=== PATIENT | female | born 1990 | race Caucasian/White ===

== ENCOUNTER 2019-12-22 11:30 | Inpatient (IN) ==
[2019-12-23] MEDS ORDERED: DINOPROSTONE 10 MG INSERT PV ONE (09:36)
[2019-12-23] MEDS ORDERED: OXYTOCIN 30 UNITS/500 ML BAG IV PRN (09:36)
[2019-12-23 09:56] LABS: Hematocrit (blood only) 38.2 % (37-47); Mean Corpuscular Hemoglobin 30.7 pg (25-34); Mean Corpuscular Volume 90.1 fL (80-100); Mean Platelet Volume 10.8 fL (7.4-10.4); Platelet Count 197 K/uL (130-400); RDW Coefficient of Variation 12.8 % (11.5-14.5); RDW Standard Deviation 41.8 fL (36.4-46.3); Red Blood Count 4.24 M/uL (4.2-5.4); White Blood Count 10.01 K/uL (4.8-10.8)
--- NOTE | 2019-12-23 10:36 | Obstetrical Progress Note ---
Date of Service December 23, 2019 Assessment & Plan Admission and Anticipated Discharge Date Admission Date: December 23, 2019 Subjective Admit Note 29 F P0000 at 40.3 weeks admitted for induction of labor for post dates. GBS is positive. FHT Cat 1. Cervix finger tip/50/-3/posterior/intact/mod. Cervidil 10 mg placed vaginally to ripen cervix. Results & Data ([facility]) Vital Signs (Past 12 Hours) Vital Signs Temp Pulse Resp BP 12/23/19 10:00 18 12/23/19 09:30 12/23/19 09:00 12/23/19 08:30 18 12/23/19 08:15 12/23/19 07:57 36.9 C 12/23/19 07:50 67 123/77
[2019-12-23] MEDS ORDERED: BUTORPHANOL TARTRATE 1 MG/ML VIAL IV PRN (21:27)
--- NOTE | 2019-12-23 21:38 | Obstetrical Progress Note ---
Date of Service December 23, 2019 Assessment & Plan Admission and Anticipated Discharge Date Admission Date: December 23, 2019 Subjective Doing well ambulating tolerating diet Physical Exam Constitutional: WD/WN, vitals as above comfortable Genitourinary: OB Exam Abdomen: + irregular contractions Manual OB Exam: + cervical dilation 1 cm, + cervical effacement 60% and + station high OB Exam Monitor Tracing: + external FHT monitor used, + external uterine monitor used, + category I and + normal FHT variability Cervidil pulled ou Will start Cytotec 50 mcg orally every 4 hours titrated to contractions Results & Data ([facility]) Vital Signs (Past 12 Hours) Vital Signs Temp Pulse Resp BP 12/23/19 19:06 36.6 C 71 18 125/77 12/23/19 17:30 18 12/23/19 17:02 71 116/68 12/23/19 16:00 36.9 C 20 12/23/19 15:45 20 12/23/19 14:26 18 12/23/19 14:00 20 12/23/19 13:30 20 12/23/19 12:20 36.7 C 59 L 123/76 12/23/19 12:15 18 12/23/19 11:30 18 12/23/19 11:00 18 12/23/19 10:30 18 12/23/19 10:00 18
[2019-12-23] MEDS ORDERED: miSOPROStoL 50 MCG TAB ONE (22:47)
[2019-12-24] MEDS ORDERED: miSOPROStoL 50 MCG TAB PO SCH
[2019-12-24] MEDS: LACTATED RINGER'S 1,000 ML IV PRN ×3 (00:54→09:34)
[2019-12-24] MEDS ORDERED: BUPIVACAINE 0.25% 30 ML VIAL ONE (01:00)
[2019-12-24] MEDS ORDERED: ePHEDrine sulfate 50 MG/ML AMP ONE (01:00)
[2019-12-24] MEDS ORDERED: fentaNYL citrate 100 MCG/2 ML VIAL ONE (01:00)
[2019-12-24] MEDS ORDERED: fentaNYL 2MCG/ML ROPIV 1.25MG/ML 100 ML BAG EPI ONE (01:01)
[2019-12-24] MEDS ORDERED: DiphenhydrAMINE HCL 50 MG/ML VIAL IV PRN (03:07)
[2019-12-24] MEDS ORDERED: NALOXONE HCL 0.4 MG/1 ML VIAL/CARP IV PRN (03:07)
[2019-12-24] MEDS ORDERED: NALOXONE HCL 1 MG in SODIUM CHLORIDE 0.9% 1000ML 1,000 ML IV PRN (03:07)
[2019-12-24] MEDS ORDERED: fentaNYL 2MCG/ML ROPIV 1.25MG/ML 100 ML BAG EPI PRN (03:07)
[2019-12-24] MEDS ORDERED: NALBUPHINE HCL INJ 10 MG/ML AMP IV PRN (03:07)
[2019-12-24] MEDS ORDERED: ePHEDrine sulfate 50 MG/ML AMP IV PRN (03:07)
--- NOTE | 2019-12-24 03:11 | Anesthesiology Consultation ---
Date of Service December 24, 2019 Assessment & Plan Chart Review Chart Review: Acceptable Risk for Labor Epidural Consults Requested none History Height/Weight Height: 5 ft 4 in Weight: 70.307 kg Allergies Allergy/AdvReac Type Severity Reaction Status Date / Time amoxicillin Allergy Unknown hives Verified 12/21/19 11:56 cefprozil [From Cefzil] Allergy Hives Verified 12/23/19 07:55 Medications Home Medications Medication Instructions Recorded Confirmed Last Taken famotidine [Pepcid] 20 mg PO DAILY 12/23/19 12/23/19 Unknown vit-iron fum-folic ac 1 tab PO DAILY 12/23/19 12/23/19 12/23/19 [ Vitamin] Active Medications Generic Name Dose Route Start Last Admin Trade Name Freq PRN Reason Stop Dose Admin Butorphanol Tartrate 1 mg 12/23/19 21:27 12/24/19 01:12 Stadol IV 01/22/20 21:26 1 mg Q2R PRN Administration Pain Lactated Ringer's 1,000 mls @ 125 mls/hr 12/23/19 09:36 12/24/19 02:02 Lr IV 12/25/19 09:35 125 mls/hr .Q8H PRN Administration L&D Protocol Protocol Past Medical History Medical History Kidney infection Past Surgical History Surgical History H/O wisdom tooth extraction History of dental surgery Social History Smoking Status: Never smoker Hx Alcohol Use: No Hx Substance Use: No substance use type: does not use Physical Exam Vital Signs Last Vital Signs Temp 36.8 C 12/23/19 22:44 Pulse 77 12/24/19 03:07 Resp 18 12/23/19 22:44 BP 116/61 12/24/19 03:07 Pulse Ox 96 12/24/19 03:06 Testing Laboratory Results 12/23/19 09:44
[2019-12-24] MEDS ORDERED: ONDANSETRON INJ 2 MG/ML 2 ML VIAL IV PRN (06:22)
[2019-12-24] MEDS ORDERED: ONDANSETRON INJ 2 MG/ML 2 ML VIAL ONE (06:23)
--- NOTE | 2019-12-24 07:06 | Obstetrical Progress Note ---
Date of Service December 24, 2019 Assessment & Plan Admission and Anticipated Discharge Date Admission Date: December 23, 2019 Physical Exam Physical Exam: Addendum to admission note GBS previously noted as positive is actually negative. Results & Data ([facility]) Vital Signs (Past 12 Hours) Vital Signs Temp Pulse Resp BP Pulse Ox 12/24/19 07:04 87 111/63 12/24/19 07:03 84 94 12/24/19 07:01 86 95 12/24/19 06:56 80 94 12/24/19 06:51 81 94 12/24/19 06:49 83 111/65 12/24/19 06:46 79 94 12/24/19 06:45 77 94 12/24/19 06:41 79 94 12/24/19 06:39 78 94 12/24/19 06:36 80 94 12/24/19 06:35 83 114/65 12/24/19 06:33 82 94 12/24/19 06:31 84 94 12/24/19 06:27 94 H 93 12/24/19 06:26 93 H 95 12/24/19 06:21 101 H 94 12/24/19 06:19 75 127/70 12/24/19 06:16 74 97 12/24/19 06:11 74 97 12/24/19 06:06 79 96 12/24/19 06:04 80 121/66 12/24/19 06:01 84 97 12/24/19 05:56 84 99 12/24/19 05:51 86 108/61 99 12/24/19 05:46 83 95 12/24/19 05:41 93 H 95 12/24/19 05:39 102 H 93 12/24/19 05:36 101 H 96 12/24/19 05:35 92 H 134/69 12/24/19 05:31 99 H 95 12/24/19 05:29 111 H 92 12/24/19 05:26 86 99 12/24/19 05:21 70 98 12/24/19 05:19 82 111/61 12/24/19 05:16 71 97 12/24/19 05:11 64 98 12/24/19 05:06 68 99 12/24/19 05:04 72 115/60 12/24/19 05:01 69 98 12/24/19 04:56 66 97 12/24/19 04:51 64 98 12/24/19 04:49 87 112/57 L 12/24/19 04:46 67 100 12/24/19 04:41 67 99 12/24/19 04:36 66 99 12/24/19 04:34 67 108/60 12/24/19 04:31 70 99 12/24/19 04:26 67 99 12/24/19 04:21 69 111/61 99 12/24/19 04:16 66 98 12/24/19 04:11 71 98 12/24/19 04:06 71 108/64 100 12/24/19 04:01 67 98 12/24/19 03:56 69 97 12/24/19 03:51 67 98 12/24/19 03:49 77 112/59 L 12/24/19 03:46 69 97 12/24/19 03:41 66 97 12/24/19 03:36 70 98 12/24/19 03:34 65 108/56 L 12/24/19 03:31 72 98 12/24/19 03:26 64 97 12/24/19 03:21 68 97 12/24/19 03:17 73 114/59 L 12/24/19 03:16 70 97 12/24/19 03:14 75 116/61 12/24/19 03:11 71 97 12/24/19 03:07 77 116/61 12/24/19 03:06 71 96 12/24/19 03:02 83 116/62 12/24/19 03:01 84 98 12/24/19 03:00 36.7 C 80 18 114/63 12/24/19 02:58 75 116/74 12/24/19 02:56 80 115/65 97 12/24/19 02:54 74 114/58 L 12/24/19 02:53 81 121/60 12/24/19 02:51 85 100 12/24/19 02:50 81 119/60 12/24/19 02:46 91 H 99 12/24/19 02:41 92 H 99 12/24/19 02:36 80 99 12/24/19 02:31 79 123/73 100 12/23/19 22:44 36.8 C 65 18 133/79 12/23/19 19:06 36.6 C 71 18 125/77
[2019-12-24] MEDS ORDERED: OXYTOCIN 30 UNITS/500 ML BAG IV PRN ×2 (07:55→16:40)
--- NOTE | 2019-12-24 07:55 | Obstetrical Progress Note ---
Date of Service December 24, 2019 Assessment & Plan Admission and Anticipated Discharge Date Admission Date: December 23, 2019 Subjective Patient is seen and examined Feels well no complaints Epidural in place Reviewed her records 'She is know to me from office No medical problems GBS negative s/p Cervidil yesterday then went into labor VSS Afebrile FHR categ I [place] ctxs q 3-5 min VE; 6/ 80%/ -2, posterior Plan to augment with low dose pitocin Continue to monitor closely Results & Data ([facility]) Vital Signs (Past 12 Hours) Vital Signs Temp Pulse Resp BP Pulse Ox 12/24/19 07:51 80 96 12/24/19 07:49 82 117/69 12/24/19 07:46 85 96 12/24/19 07:41 75 96 12/24/19 07:36 82 95 12/24/19 07:35 82 119/69 12/24/19 07:31 73 94 12/24/19 07:30 20 12/24/19 07:26 78 95 12/24/19 07:21 85 95 12/24/19 07:19 87 115/71 12/24/19 07:16 86 96 12/24/19 07:11 86 94 12/24/19 07:10 85 94 12/24/19 07:06 93 H 96 12/24/19 07:04 37.0 C 87 20 111/63 12/24/19 07:03 84 94 12/24/19 07:01 86 95 12/24/19 06:56 80 94 12/24/19 06:51 81 94 12/24/19 06:49 83 111/65 12/24/19 06:46 79 94 12/24/19 06:45 77 94 12/24/19 06:41 79 94 12/24/19 06:39 78 94 12/24/19 06:36 80 94 12/24/19 06:35 83 114/65 12/24/19 06:33 82 94 12/24/19 06:31 84 94 12/24/19 06:27 94 H 93 12/24/19 06:26 93 H 95 12/24/19 06:21 101 H 94 12/24/19 06:19 75 127/70 12/24/19 06:16 74 97 12/24/19 06:11 74 97 12/24/19 06:06 79 96 12/24/19 06:04 80 121/66 12/24/19 06:01 84 97 12/24/19 05:56 84 99 12/24/19 05:51 86 108/61 99 12/24/19 05:46 83 95 12/24/19 05:41 93 H 95 12/24/19 05:39 102 H 93 12/24/19 05:36 101 H 96 12/24/19 05:35 92 H 134/69 12/24/19 05:31 99 H 95 12/24/19 05:29 111 H 92 12/24/19 05:26 86 99 12/24/19 05:21 70 98 12/24/19 05:19 82 111/61 12/24/19 05:16 71 97 12/24/19 05:11 64 98 12/24/19 05:06 68 99 12/24/19 05:04 72 115/60 12/24/19 05:01 69 98 12/24/19 04:56 66 97 12/24/19 04:51 64 98 12/24/19 04:49 87 112/57 L 12/24/19 04:46 67 100 12/24/19 04:41 67 99 12/24/19 04:36 66 99 12/24/19 04:34 67 108/60 12/24/19 04:31 70 99 12/24/19 04:26 67 99 12/24/19 04:21 69 111/61 99 12/24/19 04:16 66 98 12/24/19 04:11 71 98 12/24/19 04:06 71 108/64 100 12/24/19 04:01 67 98 12/24/19 03:56 69 97 12/24/19 03:51 67 98 12/24/19 03:49 77 112/59 L 12/24/19 03:46 69 97 12/24/19 03:41 66 97 12/24/19 03:36 70 98 12/24/19 03:34 65 108/56 L 12/24/19 03:31 72 98 12/24/19 03:26 64 97 12/24/19 03:21 68 97 12/24/19 03:17 73 114/59 L 12/24/19 03:16 70 97 12/24/19 03:14 75 116/61 12/24/19 03:11 71 97 12/24/19 03:07 77 116/61 12/24/19 03:06 71 96 12/24/19 03:02 83 116/62 12/24/19 03:01 84 98 12/24/19 03:00 36.7 C 80 18 114/63 12/24/19 02:58 75 116/74 12/24/19 02:56 80 115/65 97 12/24/19 02:54 74 114/58 L 12/24/19 02:53 81 121/60 12/24/19 02:51 85 100 12/24/19 02:50 81 119/60 12/24/19 02:46 91 H 99 12/24/19 02:41 92 H 99 12/24/19 02:36 80 99 12/24/19 02:31 79 123/73 100 12/23/19 22:44 36.8 C 65 18 133/79
--- NOTE | 2019-12-24 14:17 | Obstetrical Progress Note ---
Date of Service December 24, 2019 Assessment & Plan Admission and Anticipated Discharge Date Admission Date: December 23, 2019 Subjective Patient is reevaluated Feels nauseous No pain or pressure VSS Afebrile VE: 10/ +1, small caput at +2 FHR categ I [place] ctxs q 3 min, pitocin is at 8 miu/min Zofran for nausea and then start pushing Results & Data ([facility]) Vital Signs (Past 12 Hours) Vital Signs Temp Pulse Resp BP Pulse Ox 12/24/19 14:11 94 H 97 12/24/19 14:06 91 H 97 12/24/19 14:05 85 113/70 12/24/19 14:01 85 95 12/24/19 13:56 86 93 12/24/19 13:51 94 H 91 12/24/19 13:49 81 109/70 12/24/19 13:46 90 97 12/24/19 13:41 95 H 97 12/24/19 13:36 96 H 99 12/24/19 13:35 95 H 118/74 12/24/19 13:31 107 H 100 12/24/19 13:30 20 12/24/19 13:26 100 H 100 12/24/19 13:21 100 H 116/66 100 12/24/19 13:16 101 H 99 12/24/19 13:11 105 H 98 12/24/19 13:06 95 H 121/66 99 12/24/19 13:01 107 H 100 12/24/19 13:00 37.5 C 20 12/24/19 12:56 94 H 97 12/24/19 12:51 120 H 100 12/24/19 12:49 102 H 127/76 12/24/19 12:46 102 H 98 12/24/19 12:41 107 H 97 12/24/19 12:36 94 H 100 12/24/19 12:35 89 143/82 H 12/24/19 12:31 86 95 12/24/19 12:30 18 12/24/19 12:27 90 89 L 12/24/19 12:26 90 89 L 12/24/19 12:21 94 H 130/75 99 12/24/19 12:16 83 91 12/24/19 12:11 90 94 12/24/19 12:06 75 136/75 99 12/24/19 12:01 92 H 92 12/24/19 12:00 20 12/24/19 11:56 90 100 12/24/19 11:51 87 100 12/24/19 11:49 85 120/74 12/24/19 11:46 90 100 12/24/19 11:41 79 99 12/24/19 11:36 81 98 12/24/19 11:35 76 111/59 L 12/24/19 11:31 72 95 12/24/19 11:30 20 12/24/19 11:26 86 97 12/24/19 11:21 89 99 12/24/19 11:20 83 115/67 12/24/19 11:16 74 98 12/24/19 11:11 74 98 12/24/19 11:06 71 118/63 99 12/24/19 11:01 88 99 12/24/19 11:00 37.1 C 20 12/24/19 10:56 75 97 12/24/19 10:51 74 97 12/24/19 10:50 73 108/55 L 12/24/19 10:46 96 H 99 12/24/19 10:41 89 97 12/24/19 10:36 84 99 12/24/19 10:31 79 98 12/24/19 10:30 20 12/24/19 10:26 90 100 12/24/19 10:21 79 98 12/24/19 10:16 91 H 97 12/24/19 10:11 84 98 12/24/19 10:06 76 121/68 98 12/24/19 10:01 69 95 12/24/19 10:00 20 12/24/19 09:56 70 96 12/24/19 09:51 77 96 12/24/19 09:50 72 113/69 12/24/19 09:46 69 95 12/24/19 09:41 78 98 12/24/19 09:36 91 H 96 12/24/19 09:34 76 115/67 12/24/19 09:31 66 95 12/24/19 09:30 37.0 C 18 12/24/19 09:26 68 96 12/24/19 09:21 71 96 12/24/19 09:19 71 121/72 05 09:16 67 95 12/24/19 09:11 75 97 05 09:06 78 97 05 09:05 73 114/69 05 09:01 74 95 05 09:00 20 12/24/19 08:56 75 96 05 08:51 75 95 12/24/19 08:49 73 116/68 0520 08:46 71 96 05 08:41 69 95 12/24/19 08:36 73 95 05 08:34 70 115/67 05 08:31 81 97 05 08:30 20 12/24/19 08:26 79 96 05 08:21 73 96 05 08:20 69 115/64 05 08:16 75 96 12/24/19 08:11 72 96 05 08:06 76 96 05 08:04 73 115/65 12/24/19 08:01 80 97 12/24/19 08:00 20 12/24/19 07:56 78 96 12/24/19 07:51 80 96 05 07:49 82 117/69 05 07:46 85 96 08 07:41 75 96 12/24/19 07:36 82 95 12/24/19 07:35 82 119/69 20 07:31 73 94 050820 07:30 20 12/24/19 07:26 78 95 05 07:21 85 95 12/24/19 07:19 87 115/71 05 07:16 86 96 12/24/19 07:11 86 94 0508 07:10 85 94 08 07:06 93 H 96 12/24/19 07:04 37.0 C 87 20 111/63 12/24/19 07:03 84 94 0508 07:01 86 95 0820 06:56 80 94 12/24/19 06:51 81 94 050820 06:49 83 111/65 050820 06:46 79 94 0508 06:45 77 94 0508 06:41 79 94 05 06:39 78 94 12/24/19 06:36 80 94 12/24/19 06:35 83 114/65 12/24/19 06:33 82 94 12/24/19 06:31 84 94 12/24/19 06:27 94 H 93 12/24/19 06:26 93 H 95 12/24/19 06:21 101 H 94 12/24/19 06:19 75 127/70 12/24/19 06:16 74 97 12/24/19 06:11 74 97 12/24/19 06:06 79 96 12/24/19 06:04 80 121/66 12/24/19 06:01 84 97 12/24/19 05:56 84 99 12/24/19 05:51 86 108/61 99 12/24/19 05:46 83 95 12/24/19 05:41 93 H 95 12/24/19 05:39 102 H 93 12/24/19 05:36 101 H 96 12/24/19 05:35 92 H 134/69 12/24/19 05:31 99 H 95 12/24/19 05:29 111 H 92 12/24/19 05:26 86 99 12/24/19 05:21 70 98 12/24/19 05:19 82 111/61 12/24/19 05:16 71 97 12/24/19 05:11 64 98 12/24/19 05:06 68 99 12/24/19 05:04 72 115/60 12/24/19 05:01 69 98 0508 04:56 66 97 12/24/19 04:51 64 98 12/24/19 04:49 87 112/57 L 12/24/19 04:46 67 100 12/24/19 04:41 67 99 05 04:36 66 99 05 04:34 67 108/60 12/24/19 04:31 70 99 12/24/19 04:26 67 99 05 04:21 69 111/61 99 12/24/19 04:16 66 98 12/24/19 04:11 71 98 0508 04:06 71 108/64 100 0508 04:01 67 98 12/24/19 03:56 69 97 12/24/19 03:51 67 98 12/24/19 03:49 77 112/59 L 12/24/19 03:46 69 97 12/24/19 03:41 66 97 12/24/19 03:36 70 98 12/24/19 03:34 65 108/56 L 12/24/19 03:31 72 98 12/24/19 03:26 64 97 12/24/19 03:21 68 97 12/24/19 03:17 73 114/59 L 12/24/19 03:16 70 97 12/24/19 03:14 75 116/61 12/24/19 03:11 71 97 12/24/19 03:07 77 116/61 12/24/19 03:06 71 96 12/24/19 03:02 83 116/62 12/24/19 03:01 84 98 12/24/19 03:00 36.7 C 80 18 114/63 12/24/19 02:58 75 116/74 12/24/19 02:56 80 115/65 97 12/24/19 02:54 74 114/58 L 12/24/19 02:53 81 121/60 12/24/19 02:51 85 100 12/24/19 02:50 81 119/60 12/24/19 02:46 91 H 99 12/24/19 02:41 92 H 99 12/24/19 02:36 80 99 12/24/19 02:31 79 123/73 100
--- NOTE | 2019-12-24 15:21 | Obstetrical Progress Note ---
Date of Service December 24, 2019 Assessment & Plan Admission and Anticipated Discharge Date Admission Date: December 23, 2019 Subjective Patient has been pushing for about 30 minutes Scalp minimally visible with pushes FHR 150's with good variability Anticipate Results & Data ([facility]) Vital Signs (Past 12 Hours) Vital Signs Temp Pulse Resp BP Pulse Ox 12/24/19 15:19 81 121/72 12/24/19 15:16 86 97 12/24/19 15:11 112 H 98 12/24/19 15:06 103 H 96 12/24/19 15:04 90 135/67 12/24/19 15:01 110 H 98 12/24/19 15:00 37.7 C H 20 12/24/19 14:56 81 98 12/24/19 14:51 83 99 12/24/19 14:49 96 H 148/69 H 12/24/19 14:46 79 100 12/24/19 14:41 75 99 12/24/19 14:36 73 99 12/24/19 14:35 76 131/77 12/24/19 14:31 89 99 12/24/19 14:30 20 12/24/19 14:26 99 H 98 12/24/19 14:21 96 H 127/78 97 12/24/19 14:16 85 97 12/24/19 14:11 94 H 97 12/24/19 14:06 91 H 97 12/24/19 14:05 85 113/70 12/24/19 14:01 85 95 12/24/19 14:00 20 12/24/19 13:56 86 93 12/24/19 13:51 94 H 91 12/24/19 13:49 81 109/70 12/24/19 13:46 90 97 12/24/19 13:41 95 H 97 12/24/19 13:36 96 H 99 12/24/19 13:35 95 H 118/74 12/24/19 13:31 107 H 100 12/24/19 13:30 20 12/24/19 13:26 100 H 100 12/24/19 13:21 100 H 116/66 100 12/24/19 13:16 101 H 99 12/24/19 13:11 105 H 98 12/24/19 13:06 95 H 121/66 99 12/24/19 13:01 107 H 100 12/24/19 13:00 37.5 C 20 12/24/19 12:56 94 H 97 12/24/19 12:51 120 H 100 12/24/19 12:49 102 H 127/76 12/24/19 12:46 102 H 98 12/24/19 12:41 107 H 97 12/24/19 12:36 94 H 100 12/24/19 12:35 89 143/82 H 12/24/19 12:31 86 95 12/24/19 12:30 18 12/24/19 12:27 90 89 L 12/24/19 12:26 90 89 L 12/24/19 12:21 94 H 130/75 99 12/24/19 12:16 83 91 12/24/19 12:11 90 94 12/24/19 12:06 75 136/75 99 12/24/19 12:01 92 H 92 12/24/19 12:00 20 12/24/19 11:56 90 100 12/24/19 11:51 87 100 12/24/19 11:49 85 120/74 12/24/19 11:46 90 100 12/24/19 11:41 79 99 12/24/19 11:36 81 98 12/24/19 11:35 76 111/59 L 12/24/19 11:31 72 95 12/24/19 11:30 20 12/24/19 11:26 86 97 12/24/19 11:21 89 99 12/24/19 11:20 83 115/67 12/24/19 11:16 74 98 12/24/19 11:11 74 98 12/24/19 11:06 71 118/63 99 12/24/19 11:01 88 99 12/24/19 11:00 37.1 C 20 12/24/19 10:56 75 97 12/24/19 10:51 74 97 12/24/19 10:50 73 108/55 L 12/24/19 10:46 96 H 99 12/24/19 10:41 89 97 12/24/19 10:36 84 99 12/24/19 10:31 79 98 12/24/19 10:30 20 12/24/19 10:26 90 100 12/24/19 10:21 79 98 12/24/19 10:16 91 H 97 05/08/20 10:11 84 98 050820 10:06 76 121/68 98 050820 10:01 69 95 050820 10:00 20 12/24/19 09:56 70 96 0520 09:51 77 96 0520 09:50 72 113/69 050820 09:46 69 95 050820 09:41 78 98 0508 09:36 91 H 96 12/24/19 09:34 76 115/67 050820 09:31 66 95 0508 09:30 37.0 C 18 12/24/19 09:26 68 96 0520 09:21 71 96 05 09:19 71 121/72 05 09:16 67 95 12/24/19 09:11 75 97 05 09:06 78 97 05 09:05 73 114/69 05 09:01 74 95 08 09:00 20 12/24/19 08:56 75 96 050820 08:51 75 95 050820 08:49 73 116/68 050820 08:46 71 96 050820 08:41 69 95 050820 08:36 73 95 0508 08:34 70 115/67 050820 08:31 81 97 050820 08:30 20 0520 08:26 79 96 0508 08:21 73 96 050820 08:20 69 115/64 050820 08:16 75 96 050820 08:11 72 96 050820 08:06 76 96 050820 08:04 73 115/65 050820 08:01 80 97 050820 08:00 20 12/24/19 07:56 78 96 050820 07:51 80 96 050820 07:49 82 117/69 050820 07:46 85 96 050820 07:41 75 96 050820 07:36 82 95 050820 07:35 82 119/69 0508/20 07:31 73 94 05/08/20 07:30 20 12/24/19 07:26 78 95 12/24/19 07:21 85 95 12/24/19 07:19 87 115/71 12/24/19 07:16 86 96 12/24/19 07:11 86 94 12/24/19 07:10 85 94 12/24/19 07:06 93 H 96 12/24/19 07:04 37.0 C 87 20 111/63 12/24/19 07:03 84 94 12/24/19 07:01 86 95 12/24/19 06:56 80 94 12/24/19 06:51 81 94 12/24/19 06:49 83 111/65 12/24/19 06:46 79 94 12/24/19 06:45 77 94 12/24/19 06:41 79 94 12/24/19 06:39 78 94 12/24/19 06:36 80 94 12/24/19 06:35 83 114/65 12/24/19 06:33 82 94 12/24/19 06:31 84 94 12/24/19 06:27 94 H 93 12/24/19 06:26 93 H 95 12/24/19 06:21 101 H 94 12/24/19 06:19 75 127/70 12/24/19 06:16 74 97 12/24/19 06:11 74 97 12/24/19 06:06 79 96 12/24/19 06:04 80 121/66 12/24/19 06:01 84 97 12/24/19 05:56 84 99 12/24/19 05:51 86 108/61 99 12/24/19 05:46 83 95 12/24/19 05:41 93 H 95 12/24/19 05:39 102 H 93 12/24/19 05:36 101 H 96 12/24/19 05:35 92 H 134/69 05 05:31 99 H 95 12/24/19 05:29 111 H 92 12/24/19 05:26 86 99 12/24/19 05:21 70 98 08 05:19 82 111/61 12/24/19 05:16 71 97 08 05:11 64 98 12/24/19 05:06 68 99 12/24/19 05:04 72 115/60 12/24/19 05:01 69 98 12/24/19 04:56 66 97 12/24/19 04:51 64 98 12/24/19 04:49 87 112/57 L 12/24/19 04:46 67 100 12/24/19 04:41 67 99 12/24/19 04:36 66 99 12/24/19 04:34 67 108/60 12/24/19 04:31 70 99 12/24/19 04:26 67 99 12/24/19 04:21 69 111/61 99 12/24/19 04:16 66 98 12/24/19 04:11 71 98 12/24/19 04:06 71 108/64 100 12/24/19 04:01 67 98 12/24/19 03:56 69 97 12/24/19 03:51 67 98 12/24/19 03:49 77 112/59 L 12/24/19 03:46 69 97 12/24/19 03:41 66 97 12/24/19 03:36 70 98 12/24/19 03:34 65 108/56 L 12/24/19 03:31 72 98 12/24/19 03:26 64 97 12/24/19 03:21 68 97
[2019-12-24] MEDS ORDERED: MEASLES, MUMPS & RUBELLA VIRUS VIAL SQ ONE (16:40)
[2019-12-24] MEDS ORDERED: DIPHTHERIA/TETANUS/PERTUSSIS 0.5 ML SYR/VIAL IM ONE (16:40)
[2019-12-24] MEDS ORDERED: SUPERCREAM 0.870% 15 GM JAR EXT PRN (16:40)
[2019-12-24] MEDS ORDERED: HYDROCORTISONE ACETATE 25 MG SUPP PR PRN (16:40)
[2019-12-24] MEDS ORDERED: ACETAMINOPHEN 325 MG TAB PO PRN (16:40)
[2019-12-24] MEDS ORDERED: bisacodyL 10 MG SUPP PR PRN (16:40)
[2019-12-24] MEDS ORDERED: BENZOCAINE 20% AER SPR 82.5 GM CAN EXT PRN (16:40)
--- NOTE | 2019-12-24 17:02 | Anesthesia Procedure Note ---
Date of Service December 24, 2019 Anesthesia Post Epidural Note Vital Signs Vital Signs: Temp Pulse Resp BP Pulse Ox 37.4 C 93 H 18 157/75 H 95 12/24/19 16:30 12/24/19 16:56 12/24/19 16:45 12/24/19 16:49 12/24/19 16:56 Pain Intensity Lower Abdomen: Pain Intensity: 2 Notes Mental Status: alert / awake / arousable and participated in evaluation Nausea / Vomiting: adequately controlled Pain: adequately controlled Airway Patency, RR, SpO2: stable & adequate BP & HR: stable & adequate Hydration State: stable & adequate Neuraxial Anesthesia: was administered and sensory block is resolving Anesthetic Complications: no major complications apparent and Pt Satisfied with anesthetic care Epidural: Removed without complications and With tip intact
[2019-12-24] MEDS: IBUPROFEN 600 MG TAB PO PRN ×2 (17:38→21:24)
--- NOTE | 2019-12-24 18:14 | Delivery Summary ---
DATE OF OPERATION: 12/24/2019 DATE OF DELIVERY: 12/24/2019 TIME: 1605 p.m. DETAILS OF DELIVERY: The patient was found to be fully dilated and desired to push. She pushed for about 1 hour and 15 minutes and delivered the head without difficulty. Shoulders were delivered with minimal traction.There was a nuchal cordx1. It was reduced. Baby was handed off to the mother where mouth and nose were suctioned. Cord was clamped x2 and cut at 1 minute delay. Cord blood was obtained. Vagina and perineum were checked for lacerations. There was a second degree laceration in the posterior fourchette extending to the left lower vagina. The skin laceration was extended to the perianal area. Rectal exam was done and good sphincter tone was noted. It was a second-degree with partial involvement of perirectal muscles. And there was a first-degree right labial laceration extending into the lower vagina. Gloves were changed and then perineum was cleaned with betadine one more time. While doing a rectal exam, the perineal body and perirectal muscles around the sphincter were held with Allis clamps. Those were reapproximated/ supported with [id number] stitches x3 and the rectal exam was repeated. Good sphincter tone was noted. No sutures were felt. Gloves were changed and the vaginal mucosa and the perineal body muscles, bulbocavernosus muscles were brought together with 2-0 Vicryl in a running fashion and skin in a subcuticular fashion, and then the labial laceration was repaired with 3-0 Vicryl in a running fashion. Excellent hemostasis was achieved. Placenta was found to be in the vagina, delivered spontaneously as intact and complete. Uterus was explored, found to be empty. Lower segment was cleared of all clots or debris. Fundus was firm. EBL was 300 mL. Mom and baby tolerated the procedure well. Sponge, instrument and needle count was correct x2. Baby was a viable male , Apgars 9/9, weight is 3692 gr. No complications happened and I was present during the whole procedure. I attest to the content of the Intraoperative Record and any orders documented therein. Any exceptions are noted below. MTDD
[2019-12-24] MEDS: DOCUSATE SODIUM 100 MG CAP PO SCH (21:24)
[2019-12-25] MEDS: IBUPROFEN 600 MG TAB PO PRN ×5 (01:25→20:47)
[2019-12-25 06:41] LABS: Hematocrit (blood only) 29.3 % (37-47); Hemoglobin 10.1 g/dL (12.0-16.0); Mean Corpuscular Hemoglobin 30.6 pg (25-34); Mean Corpuscular Hgb Conc 34.5 g/dL (32-36); Mean Corpuscular Volume 88.8 fL (80-100); Mean Platelet Volume 10.3 fL (7.4-10.4); Platelet Count 199 K/uL (130-400); RDW Coefficient of Variation 12.7 % (11.5-14.5); RDW Standard Deviation 40.7 fL (36.4-46.3); White Blood Count 16.16 K/uL (4.8-10.8)
[2019-12-25] MEDS: PRENATAL VITAMIN 1 TAB PO SCH (08:35)
[2019-12-25] MEDS: DOCUSATE SODIUM 100 MG CAP PO SCH ×2 (08:35→20:47)
--- NOTE | 2019-12-25 09:33 | Obstetrical Progress Note ---
Date of Service December 25, 2019 Assessment & Plan (1) Normal course: PPD #1 Pt doing well anticipate disch tomorrow Subjective Ambulation: ambulating normally Voiding: no voiding problems Passing Gas:: Yes Diet Tolerance:: regular diet Lochia:: Small Feeding Type:: breast feeding Review of Systems All systems reviewed & are unremarkable except as noted in HPI & below Physical Exam Constitutional WD/WN, vitals as above well developed and well nourished Eyes PERRL, conjunctivae normal, anicteric sclerae Neck trachea midline, no thyromegaly Respiratory normal respiratory effort, lungs clear to auscultation Auscultation: no crackles, no rales and no wheezes Cardiovascular RRR, no murmur, no edema Gastrointestinal (Abdomen) normal bowel sounds, soft, nontender, no hepatosplenomegaly Uterus is below umbilicus Musculoskeletal no cyanosis or clubbing, extremities motor strength 5/5 Skin no rashes, warm and dry Neurologic patellar DTR's 2+ bilat, sensation intact Psychiatric A+Ox3, euthymic affect Genitourinary normal external appearance Results & Data Vital Signs (Past 12 Hours) Vital Signs Temp Pulse Resp BP Pulse Ox 12/25/19 08:25 37.1 C 83 18 116/71 96 12/25/19 03:30 36.6 C 78 20 103/66 12/24/19 23:20 36.6 C 92 H 18 106/65
[2019-12-25] MEDS ORDERED: bisacodyL 5 MG TABEC PO SCH (20:00)
[2019-12-26] MEDS: IBUPROFEN 600 MG TAB PO PRN (07:25)
[2019-12-26] MEDS: DOCUSATE SODIUM 100 MG CAP PO SCH (07:26)
[2019-12-26] MEDS: PRENATAL VITAMIN 1 TAB PO SCH (07:26)
[2019-12-26 08:11] LABS: Hematocrit (blood only) 26.1 % (37-47); Hemoglobin 8.8 g/dL (12.0-16.0)
--- NOTE | 2019-12-26 10:50 | Obstetrical Progress Note ---
Date of Service December 26, 2019 Assessment & Plan (1) Normal course: PPD #1 Pt doing well d/c home with instructions Subjective Ambulation: ambulating normally Voiding: no voiding problems Passing Gas:: Yes Diet Tolerance:: regular diet Lochia:: Small Feeding Type:: breast feeding Review of Systems All systems reviewed & are unremarkable except as noted in HPI & below Physical Exam Constitutional WD/WN, vitals as above well developed and well nourished Eyes PERRL, conjunctivae normal, anicteric sclerae Neck trachea midline, no thyromegaly Respiratory normal respiratory effort, lungs clear to auscultation Auscultation: no crackles, no rales and no wheezes Cardiovascular RRR, no murmur, no edema Gastrointestinal (Abdomen) normal bowel sounds, soft, nontender, no hepatosplenomegaly Uterus is below umbilicus Musculoskeletal no cyanosis or clubbing, extremities motor strength 5/5 Skin no rashes, warm and dry Neurologic patellar DTR's 2+ bilat, sensation intact Psychiatric A+Ox3, euthymic affect Genitourinary normal external appearance Results & Data Vital Signs (Past 12 Hours) Vital Signs Temp Pulse Resp BP Pulse Ox 12/26/19 08:40 36.8 C 76 18 107/50 L 99 12/25/19 23:45 36.8 C 61 18 110/66
--- NOTE | 2019-12-27 09:53 | Obstetrical Progress Note ---
Date of Service December 27, 2019 Assessment & Plan Admission and Anticipated Discharge Date Admission Date: December 23, 2019 Physical Exam Genitourinary: OB Exam Abdomen: + estimated weight (6.5-7.0 lbs.) Manual OB Exam: + cervical dilation 3 cm, + cervical effacement 90%, + station - 2 and + amniotic fluid clear OB Exam Monitor Tracing: + external FHT monitor used, + external uterine monitor used, + category I and + normal FHT variability Epidural in place AROM with Amni-hook clear fluid
== END 2019-12-26 14:15 | disposition home or self-care (01) | DRG 807 ==
LOC: MERGE 11:30 → 4S1 12-23 07:44 → 4S2 12-24 19:21